=== PATIENT | male | born 1960 | race Caucasian/White ===

== ENCOUNTER 2024-03-27 06:33 | Day surgery (SDC) | payer BC ==
[2024-03-27] MEDS ORDERED: Propofol 200 MG/20 ML SDV ONE (07:08)
[2024-03-27] MEDS ORDERED: fentaNYL 50 MCG/ML SDV ONE (07:08)
[2024-03-27] MEDS ORDERED: Midazolam 1 MG/ML 2 ML SDV ONE (07:08)
[2024-03-27] MEDS: Sodium Chloride 0.9% 1,000 ML IV SCH (07:33)
== END 2024-03-27 09:43 | disposition home or self-care (01) ==
LOC: JP.SDS 06:33
PROVIDERS: ATTEND Surgery
DX: Z12.11 Encounter for screening for malignant neoplasm of colon (principal); D12.3 Benign neoplasm of transverse colon; K57.30 Diverticulosis of large intestine without perforation or abscess without bleeding; I25.10 Atherosclerotic heart disease of native coronary artery without angina pectoris; Z95.5 Presence of coronary angioplasty implant and graft; Z87.891 Personal history of nicotine dependence
CPT/HCPCS: 45385; 88305; J2250; J2704; J3010; J7030